=== PATIENT | male | born 1945 | race Caucasian/White ===

== ENCOUNTER 2017-07-09 02:04 | Emergency (ER) | payer MEDICARE, OTHER ==
[~2017-07-09] VITALS: Ht 170.2 cm; Wt 105.2 kg
[2017-07-09] MEDS ORDERED: GLIP5 PO (02:14)
[2017-07-09] MEDS ORDERED: SITA100T2 PO (02:14)
[2017-07-09] MEDS ORDERED: ATOR10 PO (02:14)
[2017-07-09] MEDS ORDERED: ZESTORETIC 20-121 EA PO (02:15)
[2017-07-09] MEDS ORDERED: Cleocin HCl300 MG PO (02:28)
== END 2017-07-09 02:50 | disposition home or self-care (01) ==
LOC: ER 02:04
DX: K04.7 Periapical abscess without sinus (principal); Z79.899 Other long term (current) drug therapy; Z79.84 Long term (current) use of oral hypoglycemic drugs; Z79.2 Long term (current) use of antibiotics
CPT/HCPCS: 99283

== ENCOUNTER 2018-03-10 09:34 | Day surgery (SDC) | payer MEDICARE, OTHER ==
[~2018-03-10] VITALS: Ht 170.2 cm; Wt 105.0 kg
[~2018-03-10 09:34] MED LIST: ATOR10 PO; Cleocin HCl300 MG PO; GLIP5 PO; SITA100T2 PO; ZESTORETIC 20-121 EA PO
[2018-03-10] MEDS ORDERED: METF500C (11:01)
== END 2018-03-10 12:39 | disposition home or self-care (01) ==
LOC: ORSCSDS 09:34
PROVIDERS: Surgery
PROC: 0DJD8ZZ Inspection of Lower Intestinal Tract, Via Natural or Artificial Opening Endoscopic (ICD-10-PCS; principal; 2018-03-10 11:00)
DX: Z12.11 Encounter for screening for malignant neoplasm of colon (principal); K57.30 Diverticulosis of large intestine without perforation or abscess without bleeding; E11.9 Type 2 diabetes mellitus without complications; I10 Essential (primary) hypertension; E66.01 Morbid (severe) obesity due to excess calories; Z68.38 Body mass index [BMI] 38.0-38.9, adult; Z79.899 Other long term (current) drug therapy; Z79.84 Long term (current) use of oral hypoglycemic drugs
CPT/HCPCS: 82947; J7120

== ENCOUNTER → 2020-05-01 | Outpatient (CLI) | payer OTHER ==
[~2020-05-01] MED LIST changes: +METF500C
[2020-05-01 16:55] LABS: Alanine Aminotransfer (ALT/SGP 28 U/L (12-78); Albumin/Globulin Ratio 0.9 (0.8-1.8); Alk Phos 105 U/L (40-126); Anion Gap 11 mmol/L (6-16); Aspartate Aminotrans (AST/SGOT 14 U/L (12-37); Bilirubin, Total 0.7 mg/dL (0.1-1.0); Blood Urea Nitrogen 11 mg/dL (8-24); CO2, Blood 27 mmol/L (21-32); Calcium, Blood 9.8 mg/dL (8.5-10.1); Chloride, Blood 93 mmol/L (98-108); Creatinine, Blood 0.92 mg/dL (0.60-1.20); Globulin, Blood 4.3 g/dL (2.2-4.0); Glomerular Filtration Rate >60 (60-); Glucose, Blood 397 mg/dL (70-99); Potassium, Blood 3.6 mmol/L (3.5-5.5); Sodium, Blood 131 mmol/L (136-145); Total Protein, Blood 8.3 g/dL (6.4-8.2)
== END | disposition home or self-care (01) ==
LOC: LAB SHORT 16:37 → LAB EV 16:37
PROVIDERS: Physician Assistant
DX: E11.65 Type 2 diabetes mellitus with hyperglycemia (principal)
CPT/HCPCS: 80053

== ENCOUNTER 2020-06-25 08:49 | Inpatient (IN) | payer OTHER ==
[~2020-06-25] VITALS: Ht 177.8 cm; Wt 96.4 kg
[~2020-06-25 08:49] MED LIST changes: -ATOR10 PO; -ZESTORETIC 20-121 EA PO
[2020-06-25 09:05] LABS: Calcium, Ionized (POC) 1.13 mmol/L (1.10-1.46); Chloride (POC) 100 mmol/L (98-108); Creatinine (POC) 0.8 mg/dL (0.8-1.3); Glucose (ISTAT POC) 305 mg/dL (70-99); Hemoglobin (POC) 15.3 g/dL (13.5-17.5); Potassium (POC) 4.5 mmol/L (3.5-5.5); Sodium (POC) 134 mmol/L (135-148); Total CO2 (POC) 24 mmol/L (21-32)
[2020-06-25 09:33] LABS: BASOPHILS ABSOLUTE AUTO 0.04 K/mm3 (0.00-0.23); BASOPHILS PERCENT AUTO 0 % (0-2); EOSINOPHILS PERCENT AUTO 0 % (0-6); Hematocrit 45.3 % (37.0-53.0); Hemoglobin 14.6 g/dL (13.5-17.5); IMMATURE GRAN ABSOLUTE AUTO 0.09 K/mm3 (0.00-0.10); IMMATURE GRAN PERCENT AUTO 1 % (0-1); LYMPHOCYTES ABSOLUTE AUTO 0.77 K/mm3 (0.84-5.20); LYMPHOCYTES PERCENT AUTO 5 % (21-46); MONOCYTES ABSOLUTE AUTO 0.49 K/mm3 (0.16-1.47); MONOCYTES PERCENT AUTO 3 % (4-13); Mean Corpuscular HGB Conc 32.2 g/dL (31.5-36.5); Mean Corpuscular Volume 93 fL (80-100); Mean Platelet Volume 8.7 fL (9.1-12.4); NEUTROPHILS ABSOLUTE AUTO 13.86 K/mm3 (1.96-9.15); NEUTROPHILS PERCENT AUTO 91 % (41-73); Platelet Count 368 K/mm3 (150-400); RDW Coefficient Variation 12.3 % (11.7-14.2); RDW Standard Deviation 42.4 fL (35.1-46.3); Red Blood Cell Count 4.87 M/mm3 (4.30-5.90); White Blood Cell Count 15.25 K/mm3 (4.00-11.30)
[2020-06-25 09:48] LABS: International Normalized Ratio 1.02; Prothrombin Time Results 10.9 Sec (9.7-11.5)
[2020-06-25 09:55] LABS: Alanine Aminotransfer (ALT/SGP 27 U/L (12-78); Albumin, Blood 3.5 g/dL (3.4-5.0); Albumin/Globulin Ratio 0.9 (0.8-1.8); Alk Phos 86 U/L (50-136); Anion Gap 8 mmol/L (6-16); Aspartate Aminotrans (AST/SGOT 22 U/L (12-37); Bilirubin, Total 0.4 mg/dL (0.1-1.0); Blood Urea Nitrogen 21 mg/dL (8-24); Bun/Creatinine Ratio 26.8 (12.0-20.0); CO2, Blood 24 mmol/L (21-32); Chloride, Blood 103 mmol/L (98-108); Creatinine, Blood 0.79 mg/dL (0.60-1.20); Glomerular Filtration Rate >60 (60-); Glucose, Blood 301 mg/dL (70-99); Potassium, Blood 4.5 mmol/L (3.5-5.5); Sodium, Blood 135 mmol/L (136-145); Total Protein, Blood 7.5 g/dL (6.4-8.2)
[2020-06-25 12:04] LABS: Influenza A, PCR Negative (NEGATIVE); Influenza B, PCR Negative (NEGATIVE); Resp Syncytial Virus, PCR Negative (NEGATIVE); SARS-Cov-2 (COVID-19) PCR, MMC Negative (NEGATIVE)
[2020-06-25] MEDS ORDERED: BASAGLAR K100 UNIT/1 SC (12:56)
[2020-06-25] MEDS ORDERED: ATOR20 PO (12:56)
[2020-06-25] MEDS ORDERED: LISINOPRIL-HCT1 EACH PO (12:57)
[2020-06-25 15:29] LABS: BASOPHILS ABSOLUTE AUTO 0.03 K/mm3 (0.00-0.23); BASOPHILS PERCENT AUTO 0 % (0-2); EOSINOPHILS ABSOLUTE AUTO 0.01 K/mm3 (0.00-0.68); EOSINOPHILS PERCENT AUTO 0 % (0-6); Hematocrit 45.3 % (37.0-53.0); Hemoglobin 15.1 g/dL (13.5-17.5); IMMATURE GRAN ABSOLUTE AUTO 0.08 K/mm3 (0.00-0.10); IMMATURE GRAN PERCENT AUTO 1 % (0-1); LYMPHOCYTES ABSOLUTE AUTO 0.93 K/mm3 (0.84-5.20); LYMPHOCYTES PERCENT AUTO 6 % (21-46); MONOCYTES ABSOLUTE AUTO 0.67 K/mm3 (0.16-1.47); MONOCYTES PERCENT AUTO 4 % (4-13); Mean Corpuscular HGB 30.3 pg (26.0-34.0); Mean Corpuscular HGB Conc 33.3 g/dL (31.5-36.5); Mean Corpuscular Volume 91 fL (80-100); Mean Platelet Volume 8.7 fL (9.1-12.4); NEUTROPHILS ABSOLUTE AUTO 13.57 K/mm3 (1.96-9.15); NEUTROPHILS PERCENT AUTO 89 % (41-73); Platelet Count 304 K/mm3 (150-400); RDW Coefficient Variation 12.7 % (11.7-14.2); RDW Standard Deviation 41.8 fL (35.1-46.3); Red Blood Cell Count 4.98 M/mm3 (4.30-5.90); White Blood Cell Count 15.29 K/mm3 (4.00-11.30)
--- NOTE | 2020-06-25 18:14 | NUR ---
PT ARRIVED TO ROOM 336 FROM ED VIA STRETCHER 2360, ORIENTED TO ROOM SET UP AND SAFETY. TEMP 99.6. PT APPEARS SLUSHED AND RED. DENIES NAUSEA, DENIES ABD PAIN. STATES LAST BM YESTERDAY APPEARED NORMAL SOFT BROWN. HAS HAD NO EMESIS SINCE THAT REPORTED IN EARLY HOURS IN ED. STATED GI CONSULT, BUT NO CONSULT NOTED IN ORDERS. WILL CALL TO CLARIFY
--- NOTE | 2020-06-25 18:16 | NUR ---
CALLED [facility] AND CONFRMED DR MATHUR SPOKE WITH AUGUSAT DELVALLE WHO PLANS TO SEE PT THIE EVENING AND LIKELY EGD 06/26. DR INFORMED OF VS AND TEMP. NEW ORDERS RECEIVED FOR NS BOLUS 1LITER NOW, BLOOD CX X2 AND PROCALCITONIN. STARTING ABX AFTER CX DRAWN. WILL RECHECK VS. START ON CLEARS AND ADAT UNTIL MN WHEN PT TO BE NPO AFTER MN.
--- NOTE | 2020-06-25 20:11 | NUR ---
SUMMARY- PT ARRIVED FROM ED 1505. A/O X4. HAD 1L NS BOLUS IN THE ED AND A 2ND NS LITER BOLUS 1700 THAN STARTED NS AT 200ML/HR. RECEIVED ORDERS FOR BLOOD CX AND CALCITONIN WHICH WERE OBTAINED. STARTED ABX SHORTLY AFTER. PT'S BLOOD PRESSURE WAS A LITTLE LOWER AND PULSE HIGHER WITH TEMP 99.6. AFTER BOLUS BLOOD PRESSURE INCREASED AND PULSE LOWER, TEMP NORMAL AT 37.5. GIVEN IV PROTONIX. PT TOLERATING CLEARS, DENIES NAUSEA OR ABD PAIN. DR DELVALLE EVALUATED PT THIS LUCIANA, AND PLAN FOR EGD IN THE AFTERNOON 06/26, FOR PT TO BE NPO AFTER CLREAR BREAKFAST. REPORTED TO PAIGE MELVIN.
--- NOTE | 2020-06-26 03:52 | NUR ---
SOW MANAGER SUMMARY PT A&OX4, ABLE TO MAKE NEEDS KNOWN, PLEASANT AND COOPERATIVE TO CARE. NO C/O PAIN OR ANY DISCOMFORT THIS SHIFT. NO C/O CP, SOB, OR N&V. CONT ON 2L O2 VIA NC, SATS BETWEEN 92-94LPM. ON CONT BIOX. CALM AND RESTED IN BED T/O SHIFT. BED AT LOWEST POSITION, CALL LIGHT WITHIN REACH. PT TO BE ON NPO AFTER CLEAR BREAKFAST FOR SCHEDULED EGD 06/26/20.
[2020-06-26 05:33] LABS: BASOPHILS ABSOLUTE AUTO 0.03 K/mm3 (0.00-0.23); BASOPHILS PERCENT AUTO 0 % (0-2); EOSINOPHILS ABSOLUTE AUTO 0.16 K/mm3 (0.00-0.68); EOSINOPHILS PERCENT AUTO 1 % (0-6); Hematocrit 40.2 % (37.0-53.0); Hemoglobin 12.7 g/dL (13.5-17.5); IMMATURE GRAN ABSOLUTE AUTO 0.03 K/mm3 (0.00-0.10); IMMATURE GRAN PERCENT AUTO 0 % (0-1); LYMPHOCYTES ABSOLUTE AUTO 2.25 K/mm3 (0.84-5.20); LYMPHOCYTES PERCENT AUTO 19 % (21-46); MONOCYTES ABSOLUTE AUTO 0.91 K/mm3 (0.16-1.47); MONOCYTES PERCENT AUTO 8 % (4-13); Mean Corpuscular HGB 29.5 pg (26.0-34.0); Mean Corpuscular HGB Conc 31.6 g/dL (31.5-36.5); Mean Corpuscular Volume 94 fL (80-100); Mean Platelet Volume 8.5 fL (9.1-12.4); NEUTROPHILS ABSOLUTE AUTO 8.45 K/mm3 (1.96-9.15); NEUTROPHILS PERCENT AUTO 71 % (41-73); Platelet Count 289 K/mm3 (150-400); RDW Coefficient Variation 12.7 % (11.7-14.2); RDW Standard Deviation 43.6 fL (35.1-46.3); White Blood Cell Count 11.83 K/mm3 (4.00-11.30)
[2020-06-26 05:55] LABS: Alanine Aminotransfer (ALT/SGP 19 U/L (12-78); Albumin, Blood 2.9 g/dL (3.4-5.0); Albumin/Globulin Ratio 0.9 (0.8-1.8); Alk Phos 67 U/L (50-136); Anion Gap 5 mmol/L (6-16); Aspartate Aminotrans (AST/SGOT 14 U/L (12-37); Bilirubin, Total 0.4 mg/dL (0.1-1.0); Blood Urea Nitrogen 14 mg/dL (8-24); Bun/Creatinine Ratio 21.6 (12.0-20.0); CO2, Blood 25 mmol/L (21-32); Calcium, Blood 8.4 mg/dL (8.5-10.1); Chloride, Blood 112 mmol/L (98-108); Creatinine, Blood 0.65 mg/dL (0.60-1.20); Globulin, Blood 3.3 g/dL (2.2-4.0); Glomerular Filtration Rate >60 (60-); Glucose, Blood 115 mg/dL (70-99); Potassium, Blood 3.7 mmol/L (3.5-5.5); Sodium, Blood 142 mmol/L (136-145); Total Protein, Blood 6.2 g/dL (6.4-8.2)
--- NOTE | 2020-06-26 11:51 | NUR ---
IV LEAKING SO REPOSITIONED AND REDRESSED; ISSUE IS NOW RESOLVED.
--- NOTE | 2020-06-26 14:21 | NUR ---
06/26/20 1421 PREMA LAINEZ History, Chart, Medications and Allergies reviewed before start of procedure. 3-LEAD EKG REVIEWED WITH PHYSICIAN PRIOR TO START OF PROCEDURE. O2 VIA N/C INTACT THROUGHOUT SEDATION/PROCEDURE. MONITOR INTACT WITH CONTINUOUS PULSE OXIMETRY AND INTERMITTENT BP. PATIENT DETERMINED TO BE ASA APPROPRIATE FOR PROPOFOL SEDATION PRIOR TO START OF PROCEDURE BY DR. MAK.
[2020-06-26] MEDS ORDERED: PANT40 PO (16:37)
--- NOTE | 2020-06-26 18:17 | NUR ---
DISCHARGE SUMMARY PT A/O X4; PLEASANT AND COOPERATIVE WITH CARE. PT CAME IN FOR UPPER GI BLEED. NO INSTANCES OF BLEEDING DURING MY SHIFT. ATE A SMALL BREAKFAST AND THEN NPO FOR EGD. UNDERWENT EGD AND TOLERATED THE PROCEDURE WELL. VSS; DISCHARGED HOME WITH AND INSTRUCTED TO FOLLOW UP WITH [facility].
== END 2020-06-26 18:03 | disposition home or self-care (01) | DRG 871 ==
LOC: ER 08:49 → MEDS 13:10
PROVIDERS: Emergency Medicine; Physician Assistant; Student in an Organized Health Care Education/Training Program; ADMIT Family Medicine
PROC: 0DB48ZX Excision of Esophagogastric Junction, Via Natural or Artificial Opening Endoscopic, Diagnostic (ICD-10-PCS; principal; 2020-06-26 13:30)
DX: A41.9 Sepsis, unspecified organism (principal); J69.0 Pneumonitis due to inhalation of food and vomit; E87.1 Hypo-osmolality and hyponatremia; K92.0 Hematemesis; Z79.4 Long term (current) use of insulin; E11.9 Type 2 diabetes mellitus without complications; I10 Essential (primary) hypertension; E66.9 Obesity, unspecified; Z68.28 Body mass index [BMI] 28.0-28.9, adult; E78.2 Mixed hyperlipidemia; Z20.828 Contact with and (suspected) exposure to other viral communicable diseases
CPT/HCPCS: 0241U; 36415; 71046; 74177; 80047; 80053; 82272; 82947; 84145; 85014; 85025; 85610; 85730; 86850; 86900; 86901; 87040; 88305; 93005; 93010; 94762; 96360-59; 96361; 99285-25; A9270; A9270-GY; C9113; J0295; J2704; J7030; J7120; Q9967

== ENCOUNTER 2021-01-13 08:49 | Day surgery (SDC) | payer OTHER ==
[~2021-01-13] VITALS: Ht 170.2 cm; Wt 89.1 kg
[~2021-01-13 08:49] MED LIST changes: +ATOR20 PO; +BASAGLAR K100 UNIT/1 SC; +DUTA.5; +INSULANI; +JARDIANCE10 MG; +LISINOPRIL-HCT1 EACH PO; +OZEMPIC1 MG/0.72; +PANT40 PO
[2021-01-13] MEDS ORDERED: METF500 PO (09:13)
--- NOTE | 2021-01-13 10:50 | NUR ---
01/13/21 1050 Gabrielle Angela PT TRANSFFERED WELL FROM BED TO CHAIR WITH STANDBY ASSISTANCE. PT AWAKE, ALERT AND FOLLOWS DIRECTIONS WELL. PT DENIES ANY PAIN AT THIS TIME AND DENIES N/V AT THIS TIME. VS WNL. WILL CONTINUE TO MONITOR PT.
== END 2021-01-13 11:19 | disposition home or self-care (01) ==
LOC: ORSCSDS 08:49
PROVIDERS: Orthopaedic Surgery
PROC: 0JBF0ZZ Excision of Left Upper Arm Subcutaneous Tissue and Fascia, Open Approach (ICD-10-PCS; principal; 2021-01-13 10:15)
DX: D17.1 Benign lipomatous neoplasm of skin and subcutaneous tissue of trunk (principal); E11.9 Type 2 diabetes mellitus without complications; E78.00 Pure hypercholesterolemia, unspecified; I10 Essential (primary) hypertension; Z79.899 Other long term (current) drug therapy
CPT/HCPCS: 82947; 88304; J0690; J1100; J1885; J2250; J2405; J2704; J2795; J3010; J7120

== ENCOUNTER → 2022-03-08 | Outpatient (CLI) | payer OTHER ==
[~2022-03-08] MED LIST changes: +METF500 PO
[2022-03-08 11:30] LABS: BASOPHILS ABSOLUTE AUTO 0.07 K/mm3 (0.00-0.23); BASOPHILS PERCENT AUTO 1 % (0-2); EOSINOPHILS PERCENT AUTO 2 % (0-6); Hematocrit 43.7 % (37.0-53.0); Hemoglobin 15.3 g/dL (13.5-17.5); IMMATURE GRAN ABSOLUTE AUTO 0.05 K/mm3 (0.00-0.10); IMMATURE GRAN PERCENT AUTO 1 % (0-1); LYMPHOCYTES ABSOLUTE AUTO 1.61 K/mm3 (0.84-5.20); LYMPHOCYTES PERCENT AUTO 15 % (21-46); MONOCYTES PERCENT AUTO 8 % (4-13); Mean Corpuscular HGB 30.9 pg (26.0-34.0); Mean Corpuscular Volume 88 fL (80-100); Mean Platelet Volume 8.5 fL (9.1-12.4); NEUTROPHILS ABSOLUTE AUTO 7.92 K/mm3 (1.96-9.15); NEUTROPHILS PERCENT AUTO 74 % (41-73); Platelet Count 361 K/mm3 (150-400); Red Blood Cell Count 4.95 M/mm3 (4.30-5.90); White Blood Cell Count 10.65 K/mm3 (4.00-11.30)
[2022-03-08 11:40] LABS: Albumin, Blood 3.7 g/dL (3.4-5.0); Albumin/Globulin Ratio 0.9 (0.8-1.8); Bilirubin, Total 0.6 mg/dL (0.1-1.0); Bun/Creatinine Ratio 12.6 (12.0-20.0); Calcium, Blood 9.6 mg/dL (8.5-10.1); Creatinine, Blood 0.87 mg/dL (0.60-1.20); Globulin, Blood 4.1 g/dL (2.2-4.0); Potassium, Blood 4.1 mmol/L (3.5-5.5); Total Protein, Blood 7.8 g/dL (6.4-8.2)
== END | disposition home or self-care (01) ==
LOC: LAB SHORT 11:26 → LAB 11:26
PROVIDERS: Physician Assistant
DX: R10.9 Unspecified abdominal pain (principal)
CPT/HCPCS: 80053; 83690; 85025; 85379

== ENCOUNTER 2025-04-29 16:11 | Emergency (ER) | payer OTHER ==
[~2025-04-29] VITALS: Ht 182.9 cm; Wt 108.9 kg
[~2025-04-29 16:11] MED LIST changes: -METF500 PO; +METF500C PO; -OZEMPIC1 MG/0.72; +OZEMPIC1 MG/0.72 SC
[2025-04-29 17:18] LABS: Source, Urine Clean Catch
[2025-04-29 17:21] LABS: Bilirubin, Urine Neg (Neg); Color, Urine Yellow (P-Yellow); Glucose Qualitative, Urine 4+ (Neg); Ketones, Urine 2+ (Neg); Leukocyte Esterase, Urine 1+ (Neg); Protein, Urine 3+ (Neg); Specific Gravity, Urine 1.010 (1.003-1.022); Urobilinogen, Urine NORM (Normal)
[2025-04-29] MEDS ORDERED: Ketorolac Tromethamine 15mg Vial IV ONE (17:40)
[2025-04-29] MEDS ORDERED: CEFP200 PO (17:49)
[2025-04-29 18:00] VITALS: BP 181/97
[2025-04-30] MEDS ORDERED: INSULIN AS100 UNIT/8 SC (07:38)
[2025-04-30] MEDS ORDERED: TRADJENTA5 MG PO (07:38)
[2025-04-30] MEDS ORDERED: BASAGLAR K100 UNIT/3 SC (07:38)
[2025-04-30] MEDS ORDERED: [UNRECOGNIZED DRUG - CODE] PO (22:54)
[2025-04-30] MEDS ORDERED: Flomax0.4 MG PO (22:55)
[2025-04-30] MEDS ORDERED: ZINC220 PO (22:56)
[2025-04-30] MEDS ORDERED: MULTI-VITAMIN1 EAC2 PO (22:57)
[2025-04-30] MEDS ORDERED: [UNRECOGNIZED DRUG - OTHER] (22:57)
[2025-04-30] MEDS ORDERED: ONETOUCH VERIO1 EAC2 MC (22:58)
== END 2025-04-29 18:31 | disposition home or self-care (01) ==
LOC: ER 16:11
PROVIDERS: Physician Assistant
DX: T14.90XA Injury, unspecified, initial encounter (principal); V43.92XA Unspecified car occupant injured in collision with other type car in traffic accident, initial encounter; N39.0 Urinary tract infection, site not specified; E11.9 Type 2 diabetes mellitus without complications; I10 Essential (primary) hypertension; F03.90 Unspecified dementia, unspecified severity, without behavioral disturbance, psychotic disturbance, mood disturbance, and anxiety; Z79.899 Other long term (current) drug therapy
CPT/HCPCS: 70450; 72125; 81001; 82947; 87077; 87086; 87186; 96374; 99284-25; A9270; J1885; L0160

== ENCOUNTER 2025-04-30 05:21 | Inpatient (IN) | payer OTHER ==
[~2025-04-30] VITALS: Ht 170.2 cm; Wt 95.0 kg
[~2025-04-30 05:21] MED LIST changes: +CEFP200 PO
[2025-04-30] MEDS ORDERED: NS 1,000 ML IV SCH (05:35)
[2025-04-30 05:44] LABS: BASOPHILS ABSOLUTE AUTO 0.05 K/mm3 (0.00-0.23); BASOPHILS PERCENT AUTO 0 % (0-2); EOSINOPHILS ABSOLUTE AUTO 0.00 K/mm3 (0.00-0.68); EOSINOPHILS PERCENT AUTO 0 % (0-6); Hematocrit 44.9 % (37.0-53.0); Hemoglobin 15.9 g/dL (13.5-17.5); IMMATURE GRAN ABSOLUTE AUTO 0.07 K/mm3 (0.00-0.10); IMMATURE GRAN PERCENT AUTO 0 % (0-1); LYMPHOCYTES ABSOLUTE AUTO 0.93 K/mm3 (0.84-5.20); LYMPHOCYTES PERCENT AUTO 5 % (21-46); MONOCYTES ABSOLUTE AUTO 0.50 K/mm3 (0.16-1.47); MONOCYTES PERCENT AUTO 3 % (4-13); Mean Corpuscular HGB Conc 35.4 g/dL (31.5-36.5); Mean Corpuscular Volume 88 fL (80-100); NEUTROPHILS ABSOLUTE AUTO 15.60 K/mm3 (1.96-9.15); NEUTROPHILS PERCENT AUTO 91 % (41-73); NRBC ABSOLUTE 0.00 K/mm3 (0.00-0.02); NRBC Auto 0.0 /100 WBC (0.0-0.2); Platelet Count 365 K/mm3 (150-400); RDW Coefficient Variation 12.5 % (11.7-14.2); RDW Standard Deviation 39.8 fL (35.1-46.3)
[2025-04-30 06:13] LABS: Alanine Aminotransfer (ALT/SGP 24.0 U/L (12-78); Albumin, Blood 3.6 g/dL (3.4-5.0); Albumin/Globulin Ratio 0.9 (0.8-1.8); Anion Gap 13.0 mmol/L (3-11); Aspartate Aminotrans (AST/SGOT 18.0 U/L (12-37); Bilirubin, Total 1.0 mg/dL (0.1-1.0); Blood Urea Nitrogen 12.0 mg/dL (8-24); CO2, Blood 23.0 mmol/L (21-32); Calcium, Blood 9.1 mg/dL (8.5-10.1); Chloride, Blood 99.0 mmol/L (98-108); Creatinine, Blood 0.7 mg/dL (0.60-1.20); Globulin, Blood 3.8 g/dL (2.2-4.0); Glucose, Blood 290.0 mg/dL (70-99); Potassium, Blood 3.7 mmol/L (3.5-5.5); Sodium, Blood 131.0 mmol/L (136-145); Thyroid Stimulating Hormone 0.754 uIU/mL (0.360-4.800); Total Protein, Blood 7.4 g/dL (6.4-8.2)
[2025-04-30] MEDS ORDERED: CefTRIAXone Sodium 1,000 MG in NS 100 ML IV ONE (06:40)
[2025-04-30] MEDS ORDERED: INSULIN AS100 UNIT/8 SC (07:38)
[2025-04-30] MEDS ORDERED: BASAGLAR K100 UNIT/3 SC (07:38)
[2025-04-30] MEDS ORDERED: TRADJENTA5 MG PO (07:38)
[2025-04-30 11:08] VITALS: BP 173/83
--- NOTE | 2025-04-30 12:12 | NUR ---
PT ARRIVED VIA CART AT 1050 AOX2 WITH CONFUSION. PT SETTLED INTO BED AND ALARM PLACED WITH CALL LIGHT IN REACH. PT IS CURRENTLY RESTING. WILL CONTINUE TO MONITOR.
[2025-04-30] MEDS ORDERED: Ondansetron HCl 2 MG / ML 2ML Vial IV PRN (14:25)
[2025-04-30] MEDS ORDERED: FLU VACC TS2025(65UP)/MF59C/PF 45 MCG/0.5 ML SYRINGE IM SCH (14:25)
[2025-04-30] MEDS ORDERED: Magnesium Hydroxide Conc 10 ML UDC PO PRN (14:25)
[2025-04-30] MEDS ORDERED: HydrALAZINE HCl 20 MG / ML 1ML Vial IV PRN (14:30)
[2025-04-30] MEDS ORDERED: Enoxaparin 40 MG/0.4 ML SYR SC SCH (15:00)
--- NOTE | 2025-04-30 15:11 | NUR ---
DOES NOT KNOW PT'S MED OR IF HE HAS TAKEN THEM. REQUESTED MEDICAITON LIST VIA FAX FROM [employer] AND CALLED WITHOUT GETTING SOMEONE TO ANSWER PHONE. NO LIST RECIEVED. CALLED [facility] AND PT'S PCP IS NOT AVAILBLE TO DAY THEY ARE TO SEND MEDICATION LIST, BUT IT MAYBE TOMORROW BEFORE IT CAN BE SENT.
[2025-04-30] MEDS ORDERED: Insulin Human Lispro 100 Units/ML 3ML Syringe SC SCH (16:30)
[2025-04-30 16:49] VITALS: BP 178/106
--- NOTE | 2025-04-30 17:32 | NUR ---
SHIFT SUMMARY; PT TO ROOM 338 AT 1045 THIS AM FROM ED. DR. HARPER AT BEDSIDE TO ASSESS PT. PT LETHARGIC, NOT OBEYING SIMPLE COMMANDS, GRUNTING TO VERBAL STIMULI AND THEN FALLING BACK TO SLEEP. INITIAL ASSESSMENT COMPLETED MUCH POSSIBLE, DUE TO COGNITION OF PT. SEE ASSESSMENT NOTES. PT HYPERTENSIVE UPON ARRIVAL. AT APPROX 1400, PT FULLY AWAKE, AGGITATED. PT PROVIDED W/ URINAL, ASSISTED BY 2 RNS AND FWW. PT ABLE TO VOID URINE. PT A/OX1 (SELF), AND ATTEMPTS GET UP OOB, THEREFORE BED ALARM SET. PT MEDICATED FOR HTN PER EMAR. BED IN LOW POSITION AND CALL LIGHT WITHIN REACH.
--- NOTE | 2025-04-30 19:57 | NUR ---
THIS EVENT LIGHTING SPECIALIST CONTACTED THE ON-CALL HOSPITALIST MASSIEL.SHANTELL D/T PT C/O H/A, CONFUSED, ATTEMPTING TO EXIT BED, BUT CONTINUES TO C/O SEVERE H/A. NEW ORDER FOR TYLENOL PO 500MG Q4HRS PRN RECEIVED AND ENTERED TO [employer], SEE EMAR.
[2025-04-30] MEDS ORDERED: Insulin Glargine 100 Unit/ML 3 ML SYR SC SCH (21:00)
[2025-04-30 21:55] VITALS: BP 138/68
[2025-04-30] MEDS ORDERED: [UNRECOGNIZED DRUG - CODE] PO (22:54)
[2025-04-30] MEDS ORDERED: Flomax0.4 MG PO (22:55)
[2025-04-30] MEDS ORDERED: ZINC220 PO (22:56)
[2025-04-30] MEDS ORDERED: MULTI-VITAMIN1 EAC2 PO (22:57)
[2025-04-30] MEDS ORDERED: [UNRECOGNIZED DRUG - OTHER] (22:57)
[2025-04-30] MEDS ORDERED: ONETOUCH VERIO1 EAC2 MC (22:58)
[2025-05-01 03:27] VITALS: BP 139/66
--- NOTE | 2025-05-01 03:47 | NUR ---
SHIFT SUMMARY PT IS A/O TO SELF AND PERSON, ALSO KNEW THAT HE IS IN THE HOSPITAL. @HS PT C/O H/A, HOLDING HIS HEAD/COVERING EARS. MEDICATED WITH TYLENOL PRN. @HS PT ATTEMPTING TO EXIT THE BED W/O ASSISTANCE, BED ALARM FOR SAFETY. PT IS 2-PERSON ASSIST WITH FWW. PT DOES IS NOT ABLE TO FOLLOW COMMANDS. HS BG 238. PT RESING WELL T/O THE NIGHT HRS, RR EVEN, UNLABORED. AWAKEN EASILY. PT URINATING IN BED, COMPLETE BED CHANGE COMPLETED. PULLUPS IN PLACE. ASSISTED WITH URINAL WHILE LAYING IN BED. BED AT THE LOWEST POSITION, CALL LIGHT W/I REACH.
[2025-05-01 04:49] LABS: BASOPHILS ABSOLUTE AUTO 0.05 K/mm3 (0.00-0.23); BASOPHILS PERCENT AUTO 0 % (0-2); EOSINOPHILS ABSOLUTE AUTO 0.00 K/mm3 (0.00-0.68); EOSINOPHILS PERCENT AUTO 0 % (0-6); Hematocrit 43.3 % (37.0-53.0); Hemoglobin 15.0 g/dL (13.5-17.5); IMMATURE GRAN ABSOLUTE AUTO 0.07 K/mm3 (0.00-0.10); IMMATURE GRAN PERCENT AUTO 1 % (0-1); LYMPHOCYTES ABSOLUTE AUTO 1.78 K/mm3 (0.84-5.20); LYMPHOCYTES PERCENT AUTO 12 % (21-46); MONOCYTES ABSOLUTE AUTO 1.28 K/mm3 (0.16-1.47); MONOCYTES PERCENT AUTO 9 % (4-13); Mean Corpuscular HGB Conc 34.6 g/dL (31.5-36.5); Mean Corpuscular Volume 88 fL (80-100); NEUTROPHILS ABSOLUTE AUTO 11.75 K/mm3 (1.96-9.15); NEUTROPHILS PERCENT AUTO 79 % (41-73); NRBC ABSOLUTE 0.00 K/mm3 (0.00-0.02); NRBC Auto 0.0 /100 WBC (0.0-0.2); Platelet Count 296 K/mm3 (150-400); RDW Coefficient Variation 12.8 % (11.7-14.2); RDW Standard Deviation 41.4 fL (35.1-46.3)
[2025-05-01 05:13] LABS: Anion Gap 10.0 mmol/L (3-11); Blood Urea Nitrogen 21.0 mg/dL (8-24); CO2, Blood 23.0 mmol/L (21-32); Calcium, Blood 9.0 mg/dL (8.5-10.1); Chloride, Blood 101.0 mmol/L (98-108); Creatinine, Blood 0.62 mg/dL (0.60-1.20); Glucose, Blood 236.0 mg/dL (70-99); Potassium, Blood 3.3 mmol/L (3.5-5.5); Sodium, Blood 131.0 mmol/L (136-145)
--- NOTE | 2025-05-01 06:46 | NUR ---
@0799 MATERIAL MOVERS WHO ASSIGNEMENT THIS SHIFT IS MERCED, FOUND THE PT ON THE FLOOR , FACING AWAY FROM THE CORNER OF THE ROOM. PT ASSISTED BACK TO BED. MATERIAL MOVERS Mee. WILL FILE IRIS AND FILL OUT POST FALL INTERVENTIONS. SEE INTERVENTION. NGOZI FERNANDEZ NOTIFIED AND NGOZI FERNANDEZ BY THE BEDSIDE. NO REDNESS, SWELLING OR BRUISING NOTED. PT DENIES PAIN. PT UNABLE TO FOLLOW DIRECTIONS, CONFUSED. NON-SLIP SOCKS ON. BED ALARN.
[2025-05-01 08:10] VITALS: BP 169/81
[2025-05-01] MEDS ORDERED: NS 250 ML IV PRN (08:15)
[2025-05-01] MEDS ORDERED: CefTRIAXone Sodium 1,000 MG in NS 100 ML IV SCH (09:00)
[2025-05-01] MEDS ORDERED: Potassium Chloride 10 Meq Tablet SA PO SCH (13:00)
[2025-05-01] MEDS ORDERED: METF500C PO (16:05)
[2025-05-01] MEDS ORDERED: FISH OIL 1,0001 EA10 PO (16:07)
[2025-05-01] MEDS ORDERED: CEFP200 PO (16:07)
[2025-05-01] MEDS ORDERED: TRADJENTA5 MG PO (16:07)
[2025-05-01] MEDS ORDERED: Haloperidol Lactate Inj. 5 MG/ML Injection IV PRN (18:45)
--- NOTE | 2025-05-01 19:13 | NUR ---
SHIFT SUMMARY- PATIENT DEMENTIA W/DELIRIUM. DR. [facility] WILL CONSULT TOMORROW. SOFT RESTRAINTS TO DO CONFUSION AND SAFETY.
[2025-05-01 20:24] VITALS: BP 146/69
[2025-05-01] MEDS ORDERED: Insulin Glargine 100 Unit/ML 3 ML SYR SC SCH (21:00)
[2025-05-02 03:12] VITALS: BP 163/82
[2025-05-02 04:48] LABS: BASOPHILS ABSOLUTE AUTO 0.07 K/mm3 (0.00-0.23); BASOPHILS PERCENT AUTO 1 % (0-2); EOSINOPHILS ABSOLUTE AUTO 0.08 K/mm3 (0.00-0.68); EOSINOPHILS PERCENT AUTO 1 % (0-6); Hematocrit 44.1 % (37.0-53.0); Hemoglobin 15.3 g/dL (13.5-17.5); IMMATURE GRAN ABSOLUTE AUTO 0.04 K/mm3 (0.00-0.10); IMMATURE GRAN PERCENT AUTO 0 % (0-1); LYMPHOCYTES ABSOLUTE AUTO 1.98 K/mm3 (0.84-5.20); LYMPHOCYTES PERCENT AUTO 16 % (21-46); MONOCYTES ABSOLUTE AUTO 1.08 K/mm3 (0.16-1.47); MONOCYTES PERCENT AUTO 9 % (4-13); Mean Corpuscular HGB Conc 34.7 g/dL (31.5-36.5); Mean Corpuscular Volume 89 fL (80-100); NEUTROPHILS ABSOLUTE AUTO 9.15 K/mm3 (1.96-9.15); NEUTROPHILS PERCENT AUTO 74 % (41-73); NRBC ABSOLUTE 0.00 K/mm3 (0.00-0.02); NRBC Auto 0.0 /100 WBC (0.0-0.2); Platelet Count 356 K/mm3 (150-400); RDW Coefficient Variation 12.4 % (11.7-14.2); RDW Standard Deviation 40.3 fL (35.1-46.3)
[2025-05-02 05:22] LABS: Alanine Aminotransfer (ALT/SGP 23.0 U/L (12-78); Albumin, Blood 3.4 g/dL (3.4-5.0); Albumin/Globulin Ratio 0.9 (0.8-1.8); Anion Gap 9.0 mmol/L (3-11); Aspartate Aminotrans (AST/SGOT 17.0 U/L (12-37); Bilirubin, Total 0.9 mg/dL (0.1-1.0); Blood Urea Nitrogen 26.0 mg/dL (8-24); CO2, Blood 27.0 mmol/L (21-32); Calcium, Blood 9.1 mg/dL (8.5-10.1); Chloride, Blood 102.0 mmol/L (98-108); Creatinine, Blood 0.68 mg/dL (0.60-1.20); Globulin, Blood 3.9 g/dL (2.2-4.0); Glucose, Blood 185.0 mg/dL (70-99); Potassium, Blood 3.3 mmol/L (3.5-5.5); Sodium, Blood 135.0 mmol/L (136-145); Total Protein, Blood 7.3 g/dL (6.4-8.2)
--- NOTE | 2025-05-02 05:35 | NUR ---
Shift Summary AO to self, hospital, and year only. Does not know month or date. Restraints removed early at the beginning of shift d/t patient asleep. Patient woke up a few times tonight and has been quite impulsive setting bed alarm off to use the restroom. Had bm x 2 tonight. PO meds held. Refilled ice water and had patient sit upright to drink, he did good w/ no signs of aspiration. Turns self in bed to get comfortable. Pt w/ only a mildly unsteady gait. Does appear to have urgency and the feeling of incomplete bladder emptying, he is here for UTI afterall. Continent of both bowel and bladder. Denies pain. Bed alarm set to middle setting otherwise patient is quick to move. No hallucinations noted.
[2025-05-02 06:50] VITALS: BP 153/88
[2025-05-02 08:03] VITALS: BP 169/69
[2025-05-02] MEDS ORDERED: MetFORMIN HCl 500 mg PO SCH (14:00)
[2025-05-02 16:16] VITALS: BP 164/93
--- NOTE | 2025-05-02 16:43 | NUR ---
SHIFT SUMMARY: PATIENT IS A&OX3-4, HE HAS BEEN PLEASANT AND COOPERATIVE AND OVERALL INDEPENDENT IN THE ROOM. ORIENTATION A LOT MORE CLEAR TODAY AND MORE TO HIS BASELINE. THE PLAN IS FOR THE PATIENT TO DISCHARGE HOME TOMORROW. HE IS IN BED, RESTING/WATCHING TV, CALL LIGHT WITHIN REACH, NO SIGNS OR SYMPTOMS OF DISTRESS, PLAN OF CARE ONGOING.
[2025-05-02] MEDS ORDERED: Potassium Chloride 10 Meq Tablet SA PO SCH (17:00)
[2025-05-02 19:45] VITALS: BP 146/77
[2025-05-02] MEDS ORDERED: Insulin Glargine 100 Unit/ML 3 ML SYR SC SCH (21:00)
[2025-05-03 03:08] VITALS: BP 157/85
[2025-05-03 04:14] VITALS: BP 155/80
--- NOTE | 2025-05-03 06:11 | NUR ---
SHIFT SUMMARY PT CALM AND COOPERATIVE DURING THE NIGHT. ALERT AND ORIENTED WITH SOME EPISODES OF FORGETFULNESS AND IMPULSIVENESS, BUT EASY TO REDIRECT. PT OCCASSIONALLY INCONT OF URINE. SLEPT INTERMITTENTLY DURING THE NIGHT.
[2025-05-03 07:49] VITALS: BP 161/77
[2025-05-03] MEDS ORDERED: AMOCLA875 PO (13:10)
--- NOTE | 2025-05-03 13:46 | NUR ---
DISCHARGE NOTE: WENT OVER DICHARGE WITH THE PATIENT. IV REMOVED AND PATIENT GOT HIMSELF DRESSED AND TOOK HIS BELONGINGS. PATIENT WHEELED DOWN BY LEAD MASSAGE THERAPIST TO [facility], NO SIGNS OR SYMPTOMS OF DISTRESS WITH DISCHARGE.
--- NOTE | 2025-05-03 14:25 | NUR ---
SPOKE WITH DR. HARPER ABOUT ADVISED MED REC. FAXED NEW MEDS AND CALLED AND UPDATED PATIENT'S .
== END 2025-05-03 14:14 | disposition home health service (06) | DRG 689 ==
LOC: ER 05:21 → MEDS 07:57 → ENPENDDIS 05-03 13:31 → MEDS 05-03 14:14
PROVIDERS: Emergency Medicine; ADMIT Internal Medicine
DX: N39.0 Urinary tract infection, site not specified (principal); G93.41 Metabolic encephalopathy; E87.1 Hypo-osmolality and hyponatremia; F05 Delirium due to known physiological condition; I10 Essential (primary) hypertension; E11.9 Type 2 diabetes mellitus without complications; E78.5 Hyperlipidemia, unspecified; F03.A0 Unspecified dementia, mild, without behavioral disturbance, psychotic disturbance, mood disturbance, and anxiety; E87.6 Hypokalemia; T50.2X5A Adverse effect of carbonic-anhydrase inhibitors, benzothiadiazides and other diuretics, initial encounter; B95.7 Other staphylococcus as the cause of diseases classified elsewhere; Z78.1 Physical restraint status; Z79.84 Long term (current) use of oral hypoglycemic drugs; Z79.85 Long-term (current) use of injectable non-insulin antidiabetic drugs
CPT/HCPCS: 36415; 51798; 71046; 80048; 80053; 82947; 83605; 84443; 85025; 87040; 93005; 93010; 96361; 96365; 97110; 97116; 97161; 97165; 97530; 97535; 99285-25; A6590; A9270; J0360; J0696; J1650; J1815; J7030; J7050; J7120

== ENCOUNTER → 2025-05-09 | Outpatient (CLI) | payer OTHER ==
[~2025-05-09] MED LIST changes: +AMOCLA875 PO; +BASAGLAR K100 UNIT/3 SC; +FISH OIL 1,0001 EA10 PO; +Flomax0.4 MG PO; +INSULIN AS100 UNIT/8 SC; +MULTI-VITAMIN1 EAC2 PO; +ONETOUCH VERIO1 EAC2 MC; +TRADJENTA5 MG PO; +ZINC220 PO; +[UNRECOGNIZED DRUG - CODE] PO; +[UNRECOGNIZED DRUG - OTHER]
== END ==
LOC: LAB 13:13 → LAB SHORT 13:13
DX: R39.9 Unspecified symptoms and signs involving the genitourinary system (principal)
CPT/HCPCS: 87086